=== PATIENT | male | born 1990 | race African-American/Black ===

== ENCOUNTER 2019-08-15 09:50 | Emergency (ER) | payer SELFPAY | END 2019-08-15 10:19 | disposition home or self-care (01) | LOC: ERS 09:50 | DX: K01.1 Impacted teeth (principal) | CPT/HCPCS: 99282 ==

== ENCOUNTER 2020-02-19 02:11 | Emergency (ER) | payer SELFPAY ==
[2020-02-19 02:44] LABS: #Eosinphils 0.2 thou/uL (0.0-0.7); #Lymphocytes 0.8 thou/uL (1.20-3.40); #Monocytes 0.6 thou/uL (0.11-0.59); #Neutrophils 4.4 thou/uL (1.40-6.50); %Basophils 0.2 % (0.0-1.0); %Eosinophils 2.7 % (0.0-10.0); %Lymphocytes 13.4 % (21.0-51.0); %Monocytes 9.8 % (0.0-10.0); %Neutrophils 73.9 % (42.0-75.0); Hemoglobin 16.9 g/dL (14.0-18.0); Mean Corpuscular HGB CONC 33.4 g/dL (32.0-36.0); Mean Corpuscular Hemoglobin 29.1 pg (27.0-31.0); Mean Corpuscular Volume 87.2 fL (78.0-98.0); Mean Platelet Volume 8.3 fL (7.4-10.4); Platelet Count 192 thou/uL (130-400); RBC Distribution Width 11.9 % (11.5-14.5)
[2020-02-19 03:06] LABS: ALT (SGPT) 20 U/L (8-55); AST (SGOT) 18 U/L (5-34); Albumin 4.7 g/dL (3.5-5.0); Alkaline Phosphatase 58 U/L (40-110); Anion Gap 15 mmol/L (10-20); BUN (Urea Nitrogen) 16 mg/dL (8.9-20.6); Bilirubin, Total 0.8 mg/dL (0.2-1.2); Calc. Creatinine Clearance 0 mL/min (70-130); Calcium 9.6 mg/dL (7.8-10.44); Carbon Dioxide 28 mmol/L (22-29); Chloride 102 mmol/L (98-107); Estimated GFR-MDRD 76; Globulin 3.7 g/dL (2.4-3.5); Glucose 121 mg/dL (70-105); Lipase 44 U/L (8-78); Potassium 4.2 mmol/L (3.5-5.1); Protein, Total 8.4 g/dL (6.0-8.3); Sodium 141 mmol/L (136-145)
[2020-02-19] MEDS ORDERED: Pantoprazole 40 MG VIAL ONE (03:24)
[2020-02-19] MEDS ORDERED: Pantoprazole 80 MG in Sodium Chloride 0.9% 100 ML IVPB SCH (03:30)
--- NOTE | 2020-02-19 08:10 | CT ---
PRELIMINARY REPORT/[facility]/EMERGENCY AFTER HOURS PROCEDURE: EXAM: CT Abdomen and Pelvis with Intravenous Contrast CLINICAL HISTORY: 29-yo M presents here with hematemesis and hematochezia since 7 pm last night. Has history of epigast chirag ulcer previously, had EGD done last year and was perforated. Diagnostic lap ensued and they "burn ed" his intestines. Denies excessive alcohol use; only drinks on special occasions. He smokes 0.5 ppd . TECHNIQUE: Axial computed tomography images of the abdomen and pelvis with intravenous contrast. CONTRAST: With; ISOVUE 370,100mL COMPARISON: None provided. FINDINGS: LUNG BASES: No basilar airspace consolidation or pleural effusion. LIVER: Unremarkable. GALLBLADDER AND BILE DUCTS: Unremarkable. No calcified stone. No ductal dilation. PANCREAS: Unremarkable. SPLEEN: Unremarkable. ADRENAL GLANDS: Unremarkable. KIDNEYS, URETERS, AND BLADDER: Unremarkable. No hydronephrosis or nephrolithiasis. No ureteral or bladder calculi. STOMACH AND BOWEL: The gastric fundus and antrum were distended with fluid. There are foci of hyperdensity mixed with fl uid. There are foci of gas along the superior wall of the gastric antrum which appeared to be intramu ral and are highly concerning for a gastric ulcer which extends through the wall. No definite extralu cherie gas or fluid to suggest definite perforation. APPENDIX: Normal appendix. PERITONEUM: No free fluid. No free air. LYMPH NODES: No lymphadenopathy. REPRODUCTIVE: Unremarkable as visualized. VASCULATURE: No aortic aneurysm. BONES: No fracture or suspicious osseous abnormality. ABDOMINAL WALL AND SOFT TISSUES: Unremarkable. IMPRESSION: The gastric fundus and antrum were distended with fluid. There are foci of hyperdensity mixed with f luid for which hemorrhage cannot be excluded. There are foci of gas along the superior wall of the g astric antrum which appeared to be intramural and are highly concerning for a gastric ulcer which ex tends through the wall. No definite extraluminal gas or fluid to suggest definite perforation. ELECTRONICALLY SIGNED BY: Kimber Mayes MD Feb 19, 2020 3:01:09 AM CUSTOMER TECHNICAL SERVICES MANAGER This report is intended for review by the ordering physician only, in accordance of law. If you recei ve this report in error, please call [facility] at [phone]. FINAL REPORT EMERGENT AFTER HOURS CT OF THE ABDOMEN AND PELVIS WITH CONTRAST: FINDINGS/IMPRESSION: I agree with the findings and impression given in the preliminary report per [facility] physici an. The stomach is moderately distended. No other acute intraabdominal/pelvic abnormality is identi fied. POS: EAA
[2020-02-19] MEDS ORDERED: Iopamidol 370 76% 100 ML VIAL ONE (12:49)
--- NOTE | 2020-02-20 04:37 | CON ---
DATE OF CONSULTATION: 02/19/2020 HISTORY OF PRESENT ILLNESS: Mr. Cameron is a 29-year-old gentleman, who came to the emergency room last night after having some coffee-grounds emesis and melena. He had about six episodes of coffee-ground emesis and a couple black stools. He figured he was having bleeding from ulcers. He had one about 2 years ago in another town. At that time, he had an upper endoscopy and cautery. He was treated for H pylori. He has had been on reflux medicines. He denies taking any NSAIDs. He does smoke a little bit. He denies much alcohol other than socially few times a month and denies any drug use. He works in a chemical plant. He denies any pain right now. Apparently last night when he came in, he was stable, hemoglobin and he left AMA. His BUN was 16, his creatinine was 1.3. Today, he came back at the urging of his girlfriend, BUN is 12, creatinine is 1.3, and his hemoglobin is 15.6. He denies any overt abdominal pain. CAT scan showed some fluid in the stomach and antrum . There is a foci of gas in the superior wall of the gastric antrum, which spreads to the intramural area concerning for gastric ulcer, which extends through the wall but there was no free air. Surgery did not feel this needed surgical evaluation. I was asked to see him. PAST MEDICAL HISTORY: Peptic ulcer disease. PAST SURGICAL HISTORY: None. ALLERGIES: NONE. MEDICATIONS: None. FAMILY HISTORY: Noncontributory. No history of pancreatic cancer, ulcers, or colon cancers. REVIEW OF SYSTEMS: Negative for chest pain, shortness of breath, dyspnea on exertion, reflux, or heartburn. Negative for NSAID use. Negative for Pepto-Bismol. PHYSICAL EXAMINATION: VITAL SIGNS: Blood pressure , pulse 90, respirations 16, and temperature 98. GENERAL: He is resting in bed. He is comfortable. He is on IV Hep-Lock. His girlfriend at bedside. HEENT: Oropharynx, no lesions. NECK: Supple. No adenopathy. LUNGS: Clear. HEART: Regular rate and rhythm without clicks or murmurs. ABDOMEN: Soft and nontender. There is no rebound. There is no guarding. EXTREMITIES: No clubbing, cyanosis, or edema. NEUROLOGIC: He is intact x3. LABORATORY DATA: CT scan films were reviewed by myself as with the report. Labs as per HPI. Toxicology, plasma alcohol, acetaminophen, salicylate, all negative. ASSESSMENT: Large gastric ulcer by CT, history of melena and hematemesis with normal BUN. If it was not for the fact that he has had an ulcer before and he says the taste and smell of vomit and stools respectively were same as last time and the CAT scan findings. It does not seem he has had a large amount of GI blood loss, but he definitely did have an endoscopy for control of hemorrhage in the past and is high risk for ongoing bleeding. RECOMMENDATIONS: 1. IV Protonix drip, which has been started. 2. IV fluids. 3. Sips of clear liquids. 4. Upper endoscopy tomorrow once COVID test is obtained. I have made a request to the [facility] for rapid COVID test, so that we will be able to get him endoscopy early tomorrow and potentially out of the hospital. I have explained to them that if we do not have a COVID test back tomorrow procedure, he will have to wait another day and take up another hospital, but I will wait administration's decision. Job ID: [id number]
== END 2020-02-19 05:06 | disposition left against medical advice (07) ==
LOC: ERS 02:11
DX: K25.4 Chronic or unspecified gastric ulcer with hemorrhage (principal); F17.210 Nicotine dependence, cigarettes, uncomplicated
CPT/HCPCS: 74177; 80053; 82274; 83690; 85025; 96374; C9113; J3490; Q9967

== ENCOUNTER 2020-02-19 12:10 | Inpatient (IN) | payer SELFPAY ==
[2020-02-19 13:31] LABS: #Eosinphils 0.2 thou/uL (0.0-0.7); #Lymphocytes 1.3 thou/uL (1.20-3.40); #Monocytes 0.6 thou/uL (0.11-0.59); %Basophils 0.8 % (0.0-1.0); %Lymphocytes 25.6 % (21.0-51.0); %Monocytes 12.4 % (0.0-10.0); %Neutrophils 58.3 % (42.0-75.0); Hemoglobin 15.7 g/dL (14.0-18.0); Mean Corpuscular HGB CONC 33.9 g/dL (32.0-36.0); Mean Corpuscular Hemoglobin 29.6 pg (27.0-31.0); Mean Corpuscular Volume 87.3 fL (78.0-98.0); Mean Platelet Volume 8.3 fL (7.4-10.4); Platelet Count 182 thou/uL (130-400); RBC Distribution Width 11.8 % (11.5-14.5); Red Blood Cell (RBC) Count 5.32 mill/uL (4.70-6.10); White Blood Cell (WBC) Count 5.1 thou/uL (4.8-10.8)
[2020-02-19 13:54] LABS: ALT (SGPT) 17 U/L (8-55); AST (SGOT) 16 U/L (5-34); Albumin 4.3 g/dL (3.5-5.0); Alkaline Phosphatase 51 U/L (40-110); Anion Gap 12 mmol/L (10-20); BUN (Urea Nitrogen) 12 mg/dL (8.9-20.6); Bilirubin, Total 0.9 mg/dL (0.2-1.2); Calc. Creatinine Clearance 0 mL/min (70-130); Calcium 9.4 mg/dL (7.8-10.44); Carbon Dioxide 26 mmol/L (22-29); Chloride 106 mmol/L (98-107); Estimated GFR-MDRD 75; Globulin 3.3 g/dL (2.4-3.5); Glucose 99 mg/dL (70-105); Potassium 4.6 mmol/L (3.5-5.1); Protein, Total 7.6 g/dL (6.0-8.3); Sodium 139 mmol/L (136-145)
[2020-02-19] MEDS ORDERED: Pantoprazole 80 MG, Admixture Fee 1 EACH in Sodium Chloride 0.9% 100 ML IVPB SCH (17:30)
[2020-02-19 17:34] LABS: Acetaminophen Less than 6.0 mcg/mL (10.0-30.0); Alcohol Less than 10 mg/dL (Less than 10); Salicylate Less than 8.0 mg/dL (15.0-30.0)
[2020-02-19 18:46] LABS: Bilirubin Negative (Negative); Blood, Urine Negative (Negative); Clarity Clear (Clear); Glucose, Urine (Dipstick) Normal (Negative); Ketone, Urine 20 mg/dL (Negative); Leukocyte Negative Leu/uL (Negative); Nitrite Negative (Negative); Protein, Urine (Dipstick) Negative (Neg-Trace); Specific Gravity, Urine 1.023 (1.002-1.036); Urobilinogen Normal mg/dL (Less than 2)
[2020-02-19 18:58] LABS: Amphetamine Not Detected (NotDetected); Barbiturates Screen Not Detected (NotDetected); Benzodiazepine Screen Not Detected (NotDetected); Cocaine Metabolite Screen Not Detected (NotDetected); Medtox Control Line Valid? VALID (VALID); Medtox Reader # READER 4; Methadone Not Detected (NotDetected); Methamphetamine Not Detected (NotDetected); Opiate Screen Not Detected (NotDetected); Oxycodone Screen Not Detected (NotDetected); Phencyclidine (PCP) Not Detected (NotDetected); THC/Cannabinoid Screen Not Detected (NotDetected); Tricyclic Screen Not Detected (NotDetected)
[2020-02-19] MEDS ORDERED: Acetaminophen 650 MG Suppository PR PRN (19:01)
[2020-02-19] MEDS ORDERED: Acetaminophen 325 MG TAB PO PRN (19:01)
--- NOTE | 2020-02-19 20:09 | PDOC.HHP ---
Hospitalist HPI - History of Present Illness History of Present Illness: ADMISSION DATE: 02/19/2020 TIME OF ASSESSMENT: 1800 PRIMARY CARE PHYSICIAN: None CHIEF COMPLAINT: Ulcer HPI: Patient returns to the emergency department after leaving AGAINST MEDICAL ADVICE early hours this morning despite plans to admit him to the hospital for a large gastric ulcer. He had initially presented with complaints of bright red blood per rectum that started yesterday and abdominal discomfort. One episode of vomiting of blood. He states he wanted to go to [place] and be evaluated at a hospital there but decided to stay and therefore has returned to the emergency department for admission. Denies any worsening in his symptoms since he left the hospital this morning. Has not had any abdominal pain, no further vomiting or blood per rectum. He had mild discomfort in his abdomen yesterday and prior to that had never experienced any of the symptoms. States it came on suddenly. Denies any heavy alcohol consumption or drug use but does eat a lot of spicy foods. He has no known medical problems. Has not noted any drastic changes in his weight. States he developed diarrhea yesterday but prior to that had regular bowel movements and has never had any GI complaints. Denies any lightheadedness shortness of breath or dizziness. No chest pain or palpitations. No changes in his appetite, early satiety or difficulties with swallowing. Currently he denies any nausea. All other review systems are negative. ED COURSE: In the emergency department early hours this morning the patient was given IV Protonix 80 mg and 1 L of normal saline. Laboratory studies done showed a hemoglobin of 16.9, hematocrit 50.6 platelets 192. Creatinine 1.34, GFR 76, BUN 16. LFTs unremarkable. Lipase normal. CT of the abdomen and pelvis demonstrated distention of the gastric fundus and antrum with fluid. Foci of hyperdensity mixed with fluid for which hemorrhage could not be excluded. Foci of gas along the superior wall of the gastric antrum which appeared to be intramural and highly concerning for gastric ulcer extending through the wall. No definite extraluminal gas or fluid to suggest definite perforation. He was given a prescription for pantoprazole and Zofran at the time that he decided to elope and therefore was not admitted. On return to the emergency department his vital signs are stable. His laboratory studies were repeated and hemoglobin is 15.7 hematocrit 46.5 platelets 182. Creatinine 1.35 GFR 75 BUN 12. Urinalysis has been obtained and unremarkable. Urine drug screen was negative and alcohol level negative as well. He has been started on a Protonix infusion and has been seen by Dr. Williamson who has advised endoscopy to be done once Covid testing is completed. PAST MEDICAL HISTORY: Gastric ulcer, diagnosed on CT imaging done in the emergency department earlier today. PAST SURGICAL HISTORY: Reports laparotomy for repair of gastric ulcer in the past. SOCIAL HISTORY: He smokes a half a pack a day and has been smoking for the last 5 years. Reports social alcohol consumption. Denies any drug use. FAMILY HISTORY: Denies any history of GI conditions or malignancy in his family. ALLERGIES: No known drug allergies CURRENT MEDICATIONS: 1. Pantoprazole 40 mg p.o. twice daily 2. Zofran 4 mg p.o. every 8 hours as needed for nausea vomiting - Exam General Appearance: NAD, awake alert General - other findings: VS: HR 77, BP 110/64, RR 18, O2 sat 100% on room air. Eye: PERRL, anicteric sclera ENT: normocephalic atraumatic, no oropharyngeal lesions, moist mucosa Neck: supple, no lymphadenopathy Heart: RRR, normal peripheral pulses Respiratory: CTAB, no wheezes, no rales, no ronchi, normal chest expansion Gastrointestinal: soft, non-tender, non-distended, normal bowel sounds, no guarding, no rigidity Extremities: no edema Skin: normal turgor, no lesions, no rashes Neurological: cranial nerve grossly intact, normal sensation to touch Musculoskeletal: normal tone, normal strength, no muscle wasting Psychiatric: normal affect, normal behavior, A&O x 3 Hospitalist Results - Labs Result Diagrams: 02/19/20 13:15 02/19/20 13:15 Lab results: WBC 5.1 thou/uL (4.8-10.8) 02/19/20 13:15 Hgb 15.7 g/dL (14.0-18.0) 02/19/20 13:15 Hct 46.5 % (42.0-52.0) 02/19/20 13:15 MCV 87.3 fL (78.0-98.0) 02/19/20 13:15 Plt Count 182 thou/uL (130-400) 02/19/20 13:15 Neutrophils % 58.3 % (42.0-75.0) 02/19/20 13:15 Sodium 139 mmol/L (136-145) 02/19/20 13:15 Potassium 4.6 mmol/L (3.5-5.1) 02/19/20 13:15 Chloride 106 mmol/L (98-107) 02/19/20 13:15 Carbon Dioxide 26 mmol/L (22-29) 02/19/20 13:15 BUN 12 mg/dL (8.9-20.6) 02/19/20 13:15 Creatinine 1.35 mg/dL (0.7-1.3) H 02/19/20 13:15 Glucose 99 mg/dL (70-105) 02/19/20 13:15 Calcium 9.4 mg/dL (7.8-10.44) 02/19/20 13:15 Total Bilirubin 0.9 mg/dL (0.2-1.2) 02/19/20 13:15 AST 16 U/L (5-34) 02/19/20 13:15 ALT 17 U/L (8-55) 02/19/20 13:15 Alkaline Phosphatase 51 U/L (40-110) 02/19/20 13:15 Serum Total Protein 7.6 g/dL (6.0-8.3) 02/19/20 13:15 Albumin 4.3 g/dL (3.5-5.0) 02/19/20 13:15 Urine Ketones 20 mg/dL (Negative) A 02/19/20 17:41 Urine Blood Negative (Negative) 02/19/20 17:41 Urine Nitrite Negative (Negative) 02/19/20 17:41 Ur Leukocyte Esterase Negative Willie/uL (Negative) 02/19/20 17:41 - Radiology Interpretation CT scan - abdomen Status: report reviewed by [place] Hospitalist H&P A/P - Problem (1) Gastric ulcer Code(s): K25.9 - GASTRIC ULCER, UNSP ACUTE OR CHRONIC, W/O HEMOR OR PERF Status: Acute (2) RONALD (acute kidney injury) Code(s): N17.9 - ACUTE KIDNEY FAILURE, UNSPECIFIED Status: Acute (3) Hematochezia Code(s): K92.1 - MELENA Status: Acute (4) Hematemesis Code(s): K92.0 - HEMATEMESIS Status: Acute (5) Tobacco use Code(s): Z72.0 - TOBACCO USE Status: Chronic - Plan Plan: Patient with acute onset of hematochezia yesterday and an episode of hematemesis as well as abdominal discomfort. Admits to excessive spicy food consumption but no alcohol consumption. UDS negative and ETOH level negative. He left against medical advice early hours this morning with plans to go to a hospital in [place] but decided to stay. Has had perforation requiring lapartomy/repair. He is asymptomatic at present and will be admitted with management of the following: Gastric Ulcer: Currently he is asymptomatic. Has not had any further vomiting, blood stools or pain today. Seen by Dr. Castillo and awaiting COVID testing with plans for EGD in the morning. H/H is essentially stable. He has been started on a Protonix infusion and will be kept NPO. We will continue to monitor H/H. RONALD: Given elevated creatinine and NPO status we will hydrate. Repeat labs in the AM to re-assess renal function. Tobacco Use: Smoking cessation advised. DVT: Prophylaxis: Mechanical SCDs CODE STATUS: FULL
[2020-02-19 21:41] VITALS: BMI 29.2
[2020-02-19 22:09] LABS: Hemoglobin 15.4 g/dL (14.0-18.0)
[2020-02-19] MEDS: Sodium Chloride 0.9% 1,000 ML IV SCH (23:03)
[2020-02-20 05:44] LABS: SARS-CoV-2 MS2 Positive; SARS-CoV-2 N Gene Negative; SARS-CoV-2 S Gene Negative; SARS-CoV-2 by NAA Not Detected (NotDetected); SARS-CoV-2 orf1ab Negative
[2020-02-20 06:01] LABS: #Basophils 0.1 thou/uL (0.0-0.2); #Eosinphils 0.3 thou/uL (0.0-0.7); #Lymphocytes 1.5 thou/uL (1.20-3.40); #Monocytes 0.6 thou/uL (0.11-0.59); #Neutrophils 1.4 thou/uL (1.40-6.50); %Basophils 1.7 % (0.0-1.0); %Lymphocytes 39.2 % (21.0-51.0); %Monocytes 14.9 % (0.0-10.0); %Neutrophils 37.3 % (42.0-75.0); Hemoglobin 14.7 g/dL (14.0-18.0); Mean Corpuscular HGB CONC 33.3 g/dL (32.0-36.0); Mean Corpuscular Hemoglobin 29.1 pg (27.0-31.0); Mean Corpuscular Volume 87.4 fL (78.0-98.0); Platelet Count 170 thou/uL (130-400); RBC Distribution Width 11.7 % (11.5-14.5); Red Blood Cell (RBC) Count 5.07 mill/uL (4.70-6.10); White Blood Cell (WBC) Count 3.8 thou/uL (4.8-10.8)
[2020-02-20 06:22] LABS: ALT (SGPT) 15 U/L (8-55); AST (SGOT) 14 U/L (5-34); Albumin 3.9 g/dL (3.5-5.0); Alkaline Phosphatase 43 U/L (40-110); Anion Gap 14 mmol/L (10-20); BUN (Urea Nitrogen) 12 mg/dL (8.9-20.6); Bilirubin, Total 0.8 mg/dL (0.2-1.2); Calc. Creatinine Clearance 87 mL/min (70-130); Calcium 9.3 mg/dL (7.8-10.44); Carbon Dioxide 25 mmol/L (22-29); Chloride 104 mmol/L (98-107); Estimated GFR-MDRD 70; Globulin 2.9 g/dL (2.4-3.5); Glucose 76 mg/dL (70-105); Potassium 4.5 mmol/L (3.5-5.1); Protein, Total 6.8 g/dL (6.0-8.3); Sodium 138 mmol/L (136-145)
[2020-02-20] MEDS: Sodium Chloride 0.9% 1,000 ML IV SCH (07:15)
[2020-02-20] MEDS ORDERED: Lidocaine 1% PF 5 ML VIAL ONE (11:00)
[2020-02-20] MEDS ORDERED: PROPOFOL 200 MG/20 ML VIAL ONE (11:00)
--- NOTE | 2020-02-20 12:32 | OP ---
DATE OF PROCEDURE: 02/20/2020 LINEMAN A CLASS SURGEON: None. PROCEDURE PERFORMED: Esophagogastroduodenoscopy, diagnostic. INDICATIONS: 1. Coffee-ground emesis. 2. Melena. 3. Abnormal CT scan, suggesting gastric antral ulcer. MEDICATIONS: See Anesthesia record. FINDINGS: After discussion of the risks, benefits, and alternatives of the procedure, informed consent was obtained and witnessed. Preendoscopic cardiopulmonary examination was satisfactory. Time-out was performed before sedation was achieved. Sedation was achieved with Anesthesia assistance in the endoscopy unit. A Pentax adult upper endoscope was placed into the oropharynx and passed through the cricopharyngeus under direct visualization. The esophageal mucosa appeared normal throughout with a normal-appearing Z-line at 40 cm from the incisors. The endoscope was advanced into the stomach. Forward and retroflexed views of the entire gastric mucosa were obtained. The gastric mucosa appears normal throughout. There was no evidence of any erosion or ulceration or any significant mucosal inflammation. This was actually unexpected given the CT report findings. The endoscope was passed through the pylorus and into the first and second portions of the duodenum, which also appeared unremarkable. I did not get good views of the ampulla area with the forward viewing scope, but there were no abnormalities on forward view. The upper endoscope was completely withdrawn and the patient allowed to recover. The patient tolerated the procedure well. There were no immediate postprocedure complications. IMPRESSION: 1. Normal EGD. 2. No endoscopic findings to correlate with CT suggestion of gastric antral ulceration. RECOMMENDATIONS: 1. Advance diet. 2. I discussed the CT reports with the on-call radiologist. It is difficult to say for sure, but this finding of extraluminal gas may represent a duodenal diverticulum, at least in part. If so, it would be a complex duodenal diverticulum. Based on the negative upper endoscopy findings, I think this is by far the most likely explanation. 3. Okay for hospital discharge later today from a GI perspective, if he is tolerating his diet and doing well symptomatically. 4. Follow up with Dr. Castillo in the GI Clinic. Job ID: [id number]
[2020-02-20 14:08] LABS: Hemoglobin 15.5 g/dL (14.0-18.0)
[2020-02-20 17:42] VITALS: BP 131/75; TEMP 97.5
--- NOTE | 2020-02-21 03:53 | DIS ---
DATE OF ADMISSION: 02/19/2020 DATE OF DISCHARGE: 02/20/2020 DISCHARGE DIAGNOSES: 1. Duodenal diverticulum. 2. Acute kidney injury, mild, resolved. 3. Hematemesis, etiology unclear. 4. Tobacco use. CONSULTATIONS: Dr. Patrick Sutherland with GI Service. PERTINENT LABORATORY AND X-RAY FINDINGS: Creatinine ranged between 1.34 to 1.44. Estimated GFR ranged between 70 to 76. LFTs within normal limits. CBC within normal limits. Urine drug screen dated 02/19/2020, negative. COVID-19 PCR not detected on 02/19/2020. CT of the abdomen and pelvis dated 02/19/2020, showed gastric fundus and antrum distended with fluid. Foci of gas along the superior wall of the gastric antrum with questionable gastric ulceration. No definite extraluminal gas or fluid to suggest perforation. EGD dated on 02/20/2020, showed normal study. HOSPITAL COURSE: The patient was initially admitted after initially presenting with complaints of bright red blood per rectum and abdominal discomfort. The patient apparently had left the emergency room against medical advice, returning back to the emergency room for evaluation and undergoing CT imaging showing questionable evidence of potential gastric ulcer with perforation. The patient underwent evaluation by the GI Service after receiving IV Protonix and intravenous normal saline. The patient underwent preparation and eventual EGD showing negative study. The patient's CT findings likely secondary to duodenal diverticulum with recommendations for conservative management. The patient overall remained clinically stable with stable hemoglobin values during the hospital course. No specific evidence to suggest acute GI bleed. I have examined the patient at the time of discharge and discussed followup instructions. The patient verbalizes understanding and in agreement, ready for discharge on 02/20/2020. DISCHARGE MEDICATIONS: Reviewed and negative. FOLLOWUP: The patient may follow up with Dr. Castillo with GI Service. CONDITION ON DISCHARGE: Stable. ACTIVITY: Ad-yohannes. DIET: Regular. CODE STATUS: Full. DISPOSITION: To home on 02/20/2020. Job ID: [id number]
== END 2020-02-20 17:41 | disposition home or self-care (01) | DRG 378 ==
LOC: ERS 12:10 → T4-B 18:23
PROVIDERS: ADMIT Emergency Medicine; ATTEND Family Medicine
PROC: 0DJ08ZZ Inspection of Upper Intestinal Tract, Via Natural or Artificial Opening Endoscopic (ICD-10-PCS; principal; 2020-02-20)
DX: K92.0 Hematemesis (principal); N17.9 Acute kidney failure, unspecified; Z20.828 Contact with and (suspected) exposure to other viral communicable diseases; F17.200 Nicotine dependence, unspecified, uncomplicated; K57.10 Diverticulosis of small intestine without perforation or abscess without bleeding; K25.9 Gastric ulcer, unspecified as acute or chronic, without hemorrhage or perforation
CPT/HCPCS: 36415; 80053; 80306; 80307; 81003; 85025; 86850; 86900; 86901; 87635; 96365; 96366; C9113; J2704; J3490; U0003